=== PATIENT | male | born 1945 | race Caucasian/White ===

== ENCOUNTER → 2017-02-18 | Outpatient (CLI) | payer OTHER | LOC: BMCIMAGING 12:29 | PROVIDERS: ATTEND Physician Assistant Surgical | DX: M48.56XA Collapsed vertebra, not elsewhere classified, lumbar region, initial encounter for fracture (principal); M85.80 Other specified disorders of bone density and structure, unspecified site ==

== ENCOUNTER → 2017-02-27 | Outpatient (CLI) | payer OTHER | LOC: FIMAGING 09:43 | PROVIDERS: ATTEND Neurological Surgery | DX: S32.010D Wedge compression fracture of first lumbar vertebra, subsequent encounter for fracture with routine healing (principal) ==

== ENCOUNTER 2017-03-08 11:42 | Inpatient (IN) | payer OTHER ==
[~2017-03-08 11:42] MED LIST: BACITRACIN 50,000 UNITS/10 ML SYR IRR ONE; BUPIVACAINE 0.25% 30 ML SDV ONE; CHLORHEXIDINE GLUC HIBICLENS 118 ML BTL TP ONE; THROMBIN (BOVINE) 5,000 UNIT VIAL TP ONE; TRANEXAMIC ACID 1,000 MG in NS 100 ML IV ONE; ceFAZolin 2 GM/SWFI 2 GM/20 ML SYR IVP ONE; fentaNYL 100 MCG/2 ML INJ IT ONE; morphINE PF 5 MG/10 ML INJ IT ONE
[2017-03-08] MEDS ORDERED: LR 1,000 ML IV ONE (12:12)
[2017-03-08] MEDS ORDERED: LIDOCAINE 1% 2 ML INJ ID PRN (12:12)
[2017-03-08] MEDS ORDERED: ceFAZolin 2 GM/SWFI 20 ML SYR IVP ONE (12:29)
--- NOTE | 2017-03-08 13:31 | PDANEPAE ---
ANE History of Present Illness 71 you M here for TLIF T12-L2 ANE Past Medical History - Cardiovascular History Hx Hypertension: No Hx Arrhythmias: No Hx Chest Pain: No Hx Coronary Artery / Peripheral Vascular Disease: No Hx CHF / Valvular Disease: No Hx Palpitations: No - Pulmonary History Hx COPD: No Hx Asthma/Reactive Airway Disease: No Hx Recent Upper Respiratory Infection: No Hx Oxygen in Use at Home: No Hx Sleep Apnea: No Sleep Apnea Screening Result - Last Documented: Positive - Neurologic History Hx Cerebrovascular Accident: No Hx Seizures: No Hx Dementia: No - Endocrine History Hx Diabetes: No - Renal History Hx Renal Disorders: No - Liver History Hx Hepatic Disorders: No - Neurological & Psychiatric Hx Hx Neurological and Psychiatric Disorders: No - Cancer History Hx Cancer: No - Congenital Disorder History Hx Congenital Disorders: No - GI History Hx Gastrointestinal Disorders: Yes Gastrointestinal History Comment: REFLUX - Other Health History Other Health History: CHRONIC ICHTHEOSIS - Chronic Pain History Chronic Pain: No - Surgical History Prior Surgeries: MENISCUS TEAR,ROTATOR CUFF ANE Review of Systems Review of Systems: - Exercise capacity METS (RN): 4 METS ANE Patient History - Allergies Allergies/Adverse Reactions: No Known Allergies Allergy (Unverified 03/24/13 21:00) - Home Medications Home medications: home medication list seen and reviewed Home Medications: Simvastatin [Zocor] 20 mg PO Q2D 03/24/13 [Last Taken 3 Days Ago ~03/05/17] Esomeprazole Mag Trihydrate [Nexium] 40 mg PO Q2D 08/05/14 [Last Taken 03/04/17] Acetaminophen [Tylenol 325mg (*)] 325 mg PO DAILY PRN 03/05/17 [Last Taken 03/04] Multivitamins [Multivitamin (*)] 1 each PO DAILY 03/05/17 [Last Taken 03/04/17] [place]-3 Fatty Acids [Fish Oil 1000 mg (*)] 1,000 mg PO DAILY 03/05/17 [Last Taken 03/04/17] - NPO status NPO Since - Liquids (Date): 03/07/17 NPO Since - Liquids (Time): 21:00 NPO Since - Solids (Date): 03/07/17 NPO Since - Solids (Time): 20:00 - Anes Hx Anes Hx: no prior problems - Smoking Hx Smoking Status: Never smoked - Alcohol Use Alcohol Use: Rarely - Family Anes Hx Family Anes Hx: none Family Hx Anesthesia Complications: NONE ANE Labs/Vital Signs - Vital Signs Blood Pressure: 128/86 Heart Rate: 75 Respiratory Rate: 18 O2 Sat (%): 95 Height: 170.18 cm Weight: 77.111 kg ANE Physical Exam - Airway Neck exam: FROM Mallampati Score: Class 2 Mouth exam: normal dental/mouth exam - Pulmonary Pulmonary: no respiratory distress, clear to auscultation - Cardiovascular Cardiovascular: regular rate and rhythym, no murmur, rub, or gallop - ASA Status ASA Status: II ANE Anesthesia Plan Anesthesia Plan: general endotracheal anesthesia Total IV Anesthesia: Yes
[2017-03-08] MEDS ORDERED: MIDAZOLAM 2 MG/2 ML VIAL IVP ONE (13:32)
[2017-03-08] MEDS ORDERED: REMIFENTANIL HCL 1 MG VIAL ONE (13:49)
[2017-03-08] MEDS ORDERED: PROPOFOL/EMULSION 500 MG/50 ML BOTTLE IV ONE (13:50)
[2017-03-08] MEDS ORDERED: fentaNYL 100 MCG/2 ML INJ ONE ×3 (13:50→17:35)
[2017-03-08] MEDS ORDERED: PROPOFOL 200 MG/20 ML VIAL ONE (13:50)
[2017-03-08] MEDS ORDERED: LIDOCAINE 2% 100 MG/5 ML SYR ONE (13:55)
[2017-03-08] MEDS ORDERED: ROCURONIUM 50 MG/5 ML VIAL ONE (13:55)
--- NOTE | 2017-03-08 15:27 | PDHPUP ---
History & Physical Update H&P update statement: This history and physical update is based on an assessment of the patient which was completed after admission or registration (within 24 hours), but prior to the surgery/procedure. H&P update: H&P reviewed & patient examined, no change in patient's condition since H&P completed
[2017-03-08] MEDS ORDERED: PHENYLEPHRINE HCL 100 MCG/ML SYR ONE (15:44)
[2017-03-08] MEDS ORDERED: PHENYLEPHRINE 10 MG/ML SDV ONE (16:13)
[2017-03-08] MEDS ORDERED: morphINE PF 5 MG/10 ML INJ ONE (16:35)
[2017-03-08] MEDS ORDERED: NALOXONE HCL 0.4 MG/ML INJ IVP PRN ×2 (17:17→17:29)
[2017-03-08] MEDS ORDERED: MEPERIDINE 25 MG/ML SYR IVP PRN (17:17)
[2017-03-08] MEDS ORDERED: PROMETHAZINE HCL 25 MG/ML INJ IVP PRN (17:17)
[2017-03-08] MEDS ORDERED: ACETAMINOPHEN 500 MG TAB PO PRN (17:17)
[2017-03-08] MEDS ORDERED: fentaNYL 100 MCG/2 ML INJ IVP PRN (17:17)
[2017-03-08] MEDS ORDERED: ONDANSETRON 4 MG/2 ML VIAL IVP PRN ×2 (17:17→17:29)
[2017-03-08] MEDS ORDERED: HYDROmorphONE/DILAUDID 1 MG/ML INJ IVP PRN (17:17)
[2017-03-08] MEDS ORDERED: morphINE PCA 30 MG/30 ML PCA IV PRN (17:29)
[2017-03-08] MEDS ORDERED: LACTULOSE 20 GM/30 ML UDCUP PO PRN (17:29)
[2017-03-08] MEDS ORDERED: BISACODYL 10 MG SUPP PR PRN (17:29)
--- NOTE | 2017-03-08 17:37 | SOAPPROG ---
SOAP Progress Note Assessment/Plan: Assessment: 71 yo M sp T12-L2 fusion Plan: stable LSO brace when out of bed x-rays in am lovenox starts POD #1 please call with neuro changes 03/08/17 17:36 Subjective: + back pain, no leg pain. Objective: Vital Signs Temp Pulse Resp BP Pulse Ox 36.6 C 75 18 128/86 H 95 03/08/17 12:20 03/08/17 13:31 03/08/17 13:31 03/08/17 13:31 03/08/17 13:31 awake, alert PERRL, EOMI, no facial droop 5/5 + light touch ICD10 Worksheet Patient Problems: Problems Problem Status Onset Fusion of spine of thoracolumbar region Acute - ICD10 Problem Qualifiers (1) Fusion of spine of thoracolumbar region
--- NOTE | 2017-03-08 17:46 | POSTANESTH ---
Post Anesthetic Evaluation Cardiovascular Status: Normal, Stable, Similar to Pre-Op Cond Respiratory Status: Normal, Stable, Similar to Pre-op Cond. Level of Consciousness/Mental Status: Can Participate in Eval, Alert and Oriented Pain Control: Adequate, Prn Tx Ordered Nausea/Vomiting Control: Adequate, Prn Tx Ordered Complications Possibly Related to Anesthesia: None Noted
[2017-03-08] MEDS ORDERED: ONDANSETRON 4 MG/2 ML VIAL ONE (18:25)
[2017-03-08] MEDS: diphenhydrAMINE 25 MG CAP PO PRN ×2 (21:27→23:15)
[2017-03-08] MEDS: FAMOTIDINE 20 MG TAB PO SCH (21:28)
[2017-03-08] MEDS: morphINE SR 15 MG TAB PO SCH (21:29)
[2017-03-08] MEDS: POLYETHYLENE GLYCOL 3350 17 GM PKT PO SCH (21:29)
[2017-03-08] MEDS: NS W/ 20 KCl/L 1,000 ML IV SCH (21:30)
[2017-03-08] MEDS: SENNOSIDES/DOCUSATE SODIUM TAB PO SCH (21:30)
[2017-03-08] MEDS: ceFAZolin 2 GM/DEXTROSE 100 ML IV SCH (23:15)
[2017-03-09] MEDS: oxyCODONE IR 5 MG TAB PO PRN ×5 (03:36→19:52)
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
[2017-03-09 05:38] LABS: % IMMATURE GRANULYOCYTES 0.4 % (0.0-1.1); ABSOLUTE IMMATURE GRANULOCYTES 0.05 10^3/uL (0.00-0.10); ADD DIFF? NO; ADD MORPH? NO; ADD SCAN? NO; ATYPICAL LYMPHOCYTE FLAG 0 (0-99); FRAGMENT RBC FLAG 0 (0-99); HEMATOCRIT 40.8 % (40.0-51.0); HEMOGLOBIN 14.7 g/dL (13.7-17.5); LEFT SHIFT FLG 0 (0-99); LIPEMIA HEMOLYSIS FLAG 90 (0-99); MEAN CELL HEMOGLOBIN 31.4 pg (27.9-34.1); MEAN CELL VOLUME 87.2 fL (81.5-99.8); MEAN PLATELET VOLUME 10.2 fL (8.7-11.7); PLATELET CLUMPS FLAG 0 (0-99); PLATELET COUNT 286 10^3/uL (150-400); RED BLOOD CELL COUNT 4.68 10^6/uL (4.40-6.38)
[2017-03-09 05:43] LABS: ANION GAP 11 mEq/L (8-16); CALCIUM 8.5 mg/dL (8.5-10.4); CARBON DIOXIDE 25 mEq/l (22-31); CHLORIDE 105 mEq/L (97-110); CREATININE 0.9 mg/dL (0.7-1.3); GLOMERULAR FILTRATION RATE > 60; GLUCOSE 108 mg/dL (70-100); POTASSIUM 4.6 mEq/L (3.5-5.2); SODIUM 141 mEq/L (134-144)
--- NOTE | 2017-03-09 07:28 | SOAPPROG ---
SOAP Progress Note Assessment/Plan: Assessment: POD #1 sp T12-L2 fusion back pain this AM neuro stable/intact Plan: PT/OT LSO when out of bed DC planning 03/09/17 07:25 Subjective: awake, alert. He reports back pain with movement, OK when still. Denies numbness, tingling or weakness sens +LT Objective: Vital Signs Temp Pulse Resp BP Pulse Ox 36.8 C 76 16 117/63 97 03/09/17 06:12 03/09/17 06:12 03/09/17 06:12 03/09/17 06:12 03/09/17 06:12 Laboratory Results 03/09/17 05:00 03/09/17 05:00 03/08/17 03/09/17 03/10/17 05:59 05:59 05:59 Intake Total 295 Output Total 800 Balance -505 Neuro: HUBBARD, sens +LT 5/5 No ADAN ICD10 Worksheet Patient Problems: Problems Problem Status Onset Fusion of spine of thoracolumbar region Acute
[2017-03-09] MEDS: METHOCARBAMOL 750 MG TAB PO PRN ×3 (07:31→21:54)
[2017-03-09] MEDS: FAMOTIDINE 20 MG TAB PO SCH ×2 (08:55→21:49)
[2017-03-09] MEDS: SENNOSIDES/DOCUSATE SODIUM TAB PO SCH ×2 (08:56→21:49)
[2017-03-09] MEDS: ATORVASTATIN CALCIUM 10 MG TAB PO SCH (08:56)
[2017-03-09] MEDS: POLYETHYLENE GLYCOL 3350 17 GM PKT PO SCH ×3 (08:57→21:49)
[2017-03-09] MEDS: MULTIVITAMINS 1 EACH TAB PO SCH (08:57)
[2017-03-09] MEDS: morphINE SR 15 MG TAB PO SCH ×2 (08:57→21:49)
[2017-03-09] MEDS: ceFAZolin 2 GM/DEXTROSE 100 ML IV SCH (10:24)
[2017-03-09] MEDS: ONDANSETRON DISINTEGRATING 4 MG TAB PO PRN (11:56)
--- NOTE | 2017-03-09 15:49 | ASMTCMCOM ---
CM Note CM Note Notes: Pt had T12-L2 fusion, OT/PT clear pt for home. Anticipate pt will d/c when medically stable, no CM d/c needs identified at this time. CM available for changes/needs. Date Signed: 03/09/2017 03:48 PM Electronically Signed By:PIA Cruz
[2017-03-09] MEDS ORDERED: PROMETHAZINE HCL 25 MG/ML INJ IVP PRN (16:09)
[2017-03-10] MEDS: oxyCODONE IR 5 MG TAB PO PRN ×7 (03:43→22:43)
--- NOTE | 2017-03-10 07:37 | SOAPPROG ---
SOAP Progress Note Assessment/Plan: Assessment: POD #2 sp T12-L2 fusion back pain better today neuro stable/intact Post op xrays look good Plan: PT/OT LSO when out of bed DC planning 03/10/17 07:36 Subjective: awake, alert, pain better today than yesterday. No BM, passing a little gas Objective: Vital Signs Temp Pulse Resp BP Pulse Ox 37.3 C 104 H 16 135/85 H 93 03/10/17 07:16 03/10/17 07:16 03/10/17 07:16 03/10/17 07:16 03/10/17 07:16 Laboratory Results 03/09/17 05:00 03/09/17 05:00 03/09/17 03/10/17 03/11/17 05:59 05:59 05:59 Intake Total 295 900 Output Total 800 575 Balance -505 325 Dressing: CDI NEuro: HUBBARD, sens +LT No ADAN ICD10 Worksheet Patient Problems: Problems Problem Status Onset Fusion of spine of thoracolumbar region Acute
[2017-03-10] MEDS: morphINE SR 15 MG TAB PO SCH ×2 (08:25→22:04)
[2017-03-10] MEDS: METHOCARBAMOL 750 MG TAB PO PRN ×3 (08:25→19:53)
[2017-03-10] MEDS: ENOXAPARIN 40 MG/0.4 ML SYR SC SCH (08:25)
[2017-03-10] MEDS: ATORVASTATIN CALCIUM 10 MG TAB PO SCH (08:26)
[2017-03-10] MEDS: SENNOSIDES/DOCUSATE SODIUM TAB PO SCH ×2 (08:26→22:04)
[2017-03-10] MEDS: POLYETHYLENE GLYCOL 3350 17 GM PKT PO SCH ×3 (08:27→23:06)
[2017-03-10] MEDS: MULTIVITAMINS 1 EACH TAB PO SCH (08:27)
[2017-03-10] MEDS: FAMOTIDINE 20 MG TAB PO SCH ×2 (08:27→23:06)
[2017-03-10] MEDS ORDERED: NS 500 ML IV ONE (17:00)
[2017-03-10] MEDS: ACETAMINOPHEN 325 MG TAB PO PRN (17:10)
[2017-03-11] MEDS: METHOCARBAMOL 750 MG TAB PO PRN ×2 (05:50→18:35)
[2017-03-11] MEDS: MAGNESIUM HYDROXIDE 30 ML UDCUP PO PRN ×2 (05:51→16:59)
[2017-03-11] MEDS: oxyCODONE IR 5 MG TAB PO PRN ×5 (05:51→23:02)
--- NOTE | 2017-03-11 08:13 | NEUSURGPN ---
Date of Surgery: 03/08/17 Post Op Day: 3 Assessment/Plan: POD #3 sp T12-L2 fusion, pre op back pain improved Plan: -Patient feels pre op back pain is improved, has expected incisional pain -Not eating much, encouraged to help with healing -PT/OT eval for discharge home today -Ok to shower -Discussed with Dr Paredes Subjective: Patient has expected incisional pain, lack of appetite Objective: AxO x3 PERRLA EOMI 5/5 BUE, BLE Sensation intact to light touch BLE Dressing CDI Neuro Check Frequency: per routine Urinary Catheter in Place: No - Physician Discussed Patient with : Den[facility] Neurosurgery Physical Exam - Vitals, I&O, Labs I and O 03/10/17 03/11/17 03/12/17 05:59 05:59 05:59 Intake Total 900 900 Output Total 575 50 Balance 325 850 Weight 77.111 kg Intake: Oral (ml) 900 400 IV Infused (ml) 500 Ns 500 ml @ 250 mls/hr IV 500 ONCE ONE Rx#:[id number] Output: Urine (ml) 575 50 Toilet 575 Urinal 50 Other: Intake Quantity Yes Sufficient Number of Voids Toilet 1 1 Number of Stools Toilet 1 Bladder Scan Volume (ml) Toilet 184 Vital Signs Temp Pulse Resp BP Pulse Ox 36.8 C 100 16 114/79 97 03/11/17 07:15 03/11/17 07:15 03/11/17 07:15 03/11/17 07:15 03/11/17 07:15 Laboratory Results 03/09/17 05:00 03/09/17 05:00 ICD10 Worksheet Patient Problems: Problems Problem Status Onset Fusion of spine of thoracolumbar region Acute
[2017-03-11] MEDS: SENNOSIDES/DOCUSATE SODIUM TAB PO SCH ×2 (08:57→19:56)
[2017-03-11] MEDS: ACETAMINOPHEN 325 MG TAB PO PRN (08:58)
[2017-03-11] MEDS: morphINE SR 15 MG TAB PO SCH (09:00)
[2017-03-11] MEDS: FAMOTIDINE 20 MG TAB PO SCH ×2 (09:01→19:56)
[2017-03-11] MEDS: MULTIVITAMINS 1 EACH TAB PO SCH (09:01)
[2017-03-11] MEDS: ENOXAPARIN 40 MG/0.4 ML SYR SC SCH (09:02)
[2017-03-11] MEDS: POLYETHYLENE GLYCOL 3350 17 GM PKT PO SCH ×3 (09:12→19:46)
[2017-03-11] MEDS: ONDANSETRON DISINTEGRATING 4 MG TAB PO PRN (11:05)
[2017-03-11] MEDS: NS W/ 20 KCl/L 1,000 ML IV SCH (18:41)
[2017-03-12] MEDS: METHOCARBAMOL 750 MG TAB PO PRN ×2 (00:06→06:18)
[2017-03-12] MEDS: oxyCODONE IR 5 MG TAB PO PRN ×4 (06:18→16:04)
--- NOTE | 2017-03-12 08:01 | SOAPPROG ---
SOAP Progress Note Assessment/Plan: Assessment: 71 yo M POD #4 T12-L2 fusion Plan: stable and doing well overall :) PT/OT hypoxia requiring low flow o2, no tachycardia/cp/sob, will check cxr to evaluate for atalectasis post op x-rays look good lovenox/scd/migdalia for dvt prophylaxis work on dc home today please call with neuro changes discussed with Dr Paredes 03/08/17 17:36 03/12/17 07:59 Subjective: continued back pain, no leg pain, no weakness. Objective: Vital Signs Temp Pulse Resp BP Pulse Ox 37.1 C 93 15 117/77 90 L 03/12/17 07:53 03/12/17 07:53 03/12/17 07:53 03/12/17 07:53 03/12/17 07:53 Laboratory Results 03/09/17 05:00 03/09/17 05:00 03/11/17 03/12/17 03/13/17 05:59 05:59 05:59 Intake Total 900 750 653 Output Total 50 1400 100 Balance 850 -650 553 AAOx4, +FC PERRL, EOMI, no facial droop KEENA x 4 + light touch C/D/I ICD10 Worksheet Patient Problems: Problems Problem Status Onset Fusion of spine of thoracolumbar region Acute - ICD10 Problem Qualifiers (1) Fusion of spine of thoracolumbar region
[2017-03-12] MEDS: POLYETHYLENE GLYCOL 3350 17 GM PKT PO SCH (09:45)
[2017-03-12] MEDS: SENNOSIDES/DOCUSATE SODIUM TAB PO SCH (09:45)
[2017-03-12] MEDS: ENOXAPARIN 40 MG/0.4 ML SYR SC SCH (09:45)
[2017-03-12] MEDS: ATORVASTATIN CALCIUM 10 MG TAB PO SCH ×2 (09:46→09:47)
[2017-03-12] MEDS: FAMOTIDINE 20 MG TAB PO SCH (09:47)
[2017-03-12] MEDS: MULTIVITAMINS 1 EACH TAB PO SCH (09:47)
[2017-03-12 15:26] VITALS: BP 140/87; PULSE 82; RESP 16; TEMP 99; O2SAT 91
--- NOTE | 2017-03-13 14:16 | ASDISCHSUM ---
Discharge Information Plan Status:Home with No Needs Medically Cleared to Leave: Discharge Date:03/12/2017 04:29 PM CM D/C Disposition: ADT D/C Disposition:Home, Routine, Self-Care Projected Discharge Date:03/12/2017 04:29 PM Transportation at D/C: Discharge Delay Reason: Follow-Up Date:03/12/2017 04:29 PM Discharge Slot: Final Diagnosis: Placement Information Patient Contact Information Contact Name:MARLEY Relationship: Address:[address] [place] City:[place] Alternate Phone: [facility]/Zip Code:[place] [address] Email: Financial Information Financial Class:Worker's Compensation Primary Plan Desc:[employer] Primary Plan Number:[id number] Secondary Plan Desc:[facility] Secondary Plan Number:[id number] Assessment Information [facility] CM Progress Note CM Note CM Note Notes: Pt had T12-L2 fusion, OT/PT clear pt for home. Anticipate pt will d/c when medically stable, no CM d/c needs identified at this time. CM available for changes/needs. Date Signed: 03/09/2017 03:48 PM Electronically Signed By:PIA Cruz Intervention Information
== END 2017-03-12 16:29 | disposition home or self-care (01) | DRG 460 ==
LOC: F3N 11:42
PROVIDERS: ADMIT Neurological Surgery; ATTEND Neurological Surgery
DX: M40.15 Other secondary kyphosis, thoracolumbar region (principal); S32.010S Wedge compression fracture of first lumbar vertebra, sequela
CPT/HCPCS: 97161-GP; 97166-GO; 97535-GO; C1713; C1762; G8978-GP-CI; G8979-GP-CI; G8980-GP-CI; G8987-GO-CI; G8988-GO-CI; G8989-GO-CI; J0171; J0690; J1650; J2001; J2250; J2274; J2370; J2405; J2550; J2704; J3010

== ENCOUNTER → 2017-04-06 | Outpatient (CLI) | payer OTHER | LOC: BMCIMAGING 14:28 | PROVIDERS: ATTEND Family Medicine | DX: Z13.820 Encounter for screening for osteoporosis (principal); M81.0 Age-related osteoporosis without current pathological fracture ==

== ENCOUNTER → 2017-05-31 | Outpatient (CLI) | payer OTHER | LOC: FIMAGING 10:38 | PROVIDERS: ATTEND Neurological Surgery | DX: Z09 Encounter for follow-up examination after completed treatment for conditions other than malignant neoplasm (principal); Z98.1 Arthrodesis status ==

== ENCOUNTER → 2017-09-07 | Outpatient (CLI) | payer OTHER | LOC: FIMAGING 15:40 | PROVIDERS: ATTEND Physician Assistant Surgical | DX: Z98.1 Arthrodesis status (principal) ==

== ENCOUNTER → 2018-03-02 | Outpatient (CLI) | payer OTHER | LOC: FIMAGING 13:02 | PROVIDERS: ATTEND Physician Assistant Surgical | DX: Z98.1 Arthrodesis status (principal); S32.010S Wedge compression fracture of first lumbar vertebra, sequela ==

== ENCOUNTER → 2018-06-07 | Outpatient (CLI) | payer OTHER, MEDICARE | LOC: FIMAGING 15:11 | PROVIDERS: ATTEND Neurological Surgery | DX: Z09 Encounter for follow-up examination after completed treatment for conditions other than malignant neoplasm (principal); Z98.1 Arthrodesis status; S32.010D Wedge compression fracture of first lumbar vertebra, subsequent encounter for fracture with routine healing; S22.070S Wedge compression fracture of T9-T10 vertebra, sequela ==

== ENCOUNTER → 2018-09-05 | Outpatient (CLI) | payer OTHER, MEDICARE | LOC: FIMAGING 09:57 | PROVIDERS: ATTEND Physician Assistant Surgical | DX: S32.010S Wedge compression fracture of first lumbar vertebra, sequela (principal); Z98.1 Arthrodesis status ==